=== PATIENT | female | born 1970 | race African-American/Black ===

== ENCOUNTER 2019-04-12 17:33 | Inpatient (IN) | payer OTHER ==
[2019-04-12 21:27] VITALS: BMI 22.6
--- NOTE | 2019-04-12 22:36 | HP ---
"CIWA Score Nausea/Vomitin-No Nausea/No Vomiting Muscle Tremors: 4-Moderate,w/Arms Extend Anxiety: 3 Agitation: 1-Slight > Activity Paroxysmal Sweats: 3 (Increased facial moisture) Orientation: 1-Uncertain about Date Tacttile Disturbances: 0-None Auditory Disturbances: 0-None Visual Disturbances: 0-None Headache: 2-Mild CIWA-Ar Total Score: 14 - Admission Criteria OASAS Guidelines: Admission for Medically Managed Detox: Requires at least one of the followin. CIWA greater than 12 2. Seizures within the past 24 hours 3. Delirium tremens within the past 24 hours 4. Hallucinations within the past 24 hours 5. Acute intervention needed for co occurring medical disorder 6. Acute intervention needed for co occurring psychiatric disorder 7. Severe withdrawal that cannot be handled at a lower level of care (continued vomiting, continued diarrhea, abnormal vital signs) requiring intravenous medication and/or fluids 8. Patient presents the following: CIWA greater than 12 Admission Criteria Met: Admission criteria met Admission ROS S - [facility] Chief Complaint: Withdrawing from alcohol Allergies/Adverse Reactions: Allergies Allergy/AdvReac Type Severity Reaction Status Date / Time No Known Allergies Allergy Verified 04/12/19 21:17 History of Present Illness: 48 yo present to [facility] w/ alcohol withdrawal symptoms. Referred for detox, after ED evaluation @ [facility], where was evaluated for Chest Pain. Chest XR and EKG w/ Rhythm strip done at [facility] and patient discharged w/o medication. Dnies chest pain at this time. Alcohol use began at age 19. Current use 8-12 12-24 oz beers. Relpased 3 months ago. (Used to drink a lot more) Cocaine use began at age 23. Smokes. (1-2x/week) Nicotine use began at age [age]. Smokes 1/2 PPD. UTox: + THC/LEDY HCG: Neg No seizures. Blackouts r/t alcohol use. Last about 3 days. PMHx: HTN, Sickle Cell Trait, anemia, hypoglycemia, blind (R) eye, Intermittent chest pain, MHHx: Schizophrenia, bi-polar, mod-disorder; Denies thoughts of harming self or others. Depakote,for anxiety, Seroquel, Zoloft 04/12/19 @ [facility]: Valproic Acid level = 7.8 Longest length of sobriety 2 years. Search Terms: Evette Galvan, 1970 Search Date: 04/12/2019 11:20:40 PM The Drug Utilization Report below displays all of the controlled substance prescriptions, if any, that your patient has filled in the last twelve months. The information displayed on this report is compiled from pharmacy submissions to the Department, and accurately reflects the information as submitted by the pharmacies. This report was requested by: Michelle Marrufo | Reference #: [id number] There are no results for the search terms that you entered. Exam Limitations: No Limitations - Ebola screening Have you traveled outside of the country in the last 21 days: No (N) Have you had contact with anyone from an Ebola affected area: No Have you been sick,other than usual withdrawal symptoms: No (Denies recent exposure to measles) Do you have a fever: No - Review of Systems Constitutional: Chills, Diaphoresis (Increased facial moisture), Changes in sleep (Difficulty falling asleep; Seroquel), Unintentional Wgt. Loss (r/t stress) EENT: reports: Blurred Vision, Other (Blind (R) eye r/t retinal detachment - 2004) Respiratory: reports: SOB with Exertion (Stairs, walking) Cardiac: reports: Other (Chest pain earlier - but not now) GI: reports: No Symptoms Reported : reports: No Symptoms Reported Musculoskeletal: reports: Back Pain (Intermittent mid thorasic achy back pain), Muscle Pain (Genralized aching) Integumentary: reports: No Symptoms Reported Neuro: reports: Headache (Frontal headache - mild), Numbness (intermittent toes) , Tremors Endocrine: reports: Increased Thirst Hematology: reports: Anemia (Iron deficiencey), Easy Bruising, Other (Sickle cell trait) Psychiatric: reports: Judgement Intact, Orientated x3 (Off by 1 day), Anxious, Depressed (Denies thoughts of harming self or others.) Other Systems: Reviewed and Negative Patient History - PPD History Previous Implant?: Yes Documented Results: Positive w/o proof Implanted On Prior [facility] Admission?: No PPD to be Administered?: No - Reproductive History Patient is a Female of Child Bearing Age (11 -55 yrs old): Yes Patient : No (Has an IUD and no periods) - Smoking Cessation Smoking history: Current every day smoker Have you smoked in the past 12 months: Yes Aproximately how many cigarettes per day: 10 Hx Chewing Tobacco Use: No Initiated information on smoking cessation: Yes 'Breaking Loose' booklet given: 04/12/19 - Substance & Tx. History Hx Alcohol Use: Yes Hx Substance Use: Yes Substance Use Type: Alcohol, Cocaine Hx Substance Use Treatment: Yes (detox, rehab) - Substances abused Alcohol Substance route: Oral Frequency: Daily Amount used: Beer - ( 12 ) 12 oz Age of first use: 19 Date of last use: 04/11/19 Cocaine Substance route: Smoking Frequency: 1-2 times per week Amount used: $20 Age of first use: 23 Date of last use: 04/11/19 Admission Physical Exam S - Vital Signs Vital Signs: Vital Signs - 24 hr 04/12/19 21:21 Temperature 98.2 F Pulse Rate 87 Respiratory 18 Rate Blood Pressure 168/108 H - Physical General Appearance: Yes: Mild Distress, Thin, Tremorous (Increased w/ arm elevation), Sweating (Increased facial moisture), Anxious HEENTM: Yes: EOMI, Hearing grossly Normal, Normocephalic, Normal Voice, Pharynx Normal, Other ((R) eye opaque and w/o vision) Respiratory: Yes: Lungs Clear, Normal Breath Sounds, No Respiratory Distress Neck: Yes: No masses,lesions,Nodules, Supple Breast: Yes: Breast Exam Deferred Cardiology: Yes: Regular Rhythm, Regular Rate (76), S1, S2 Abdominal: Yes: Non Tender, Soft, Increased Bowel Sounds, Protuberent Genitourinary: Yes: Within Normal Limits Back: Yes: Normal Inspection Musculoskeletal: Yes: full range of Motion, Gait Steady Extremities: Yes: Normal Capillary Refill, Normal Range of Motion, Tremors ( Increased w/ arm elevation) 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, Alert, Motor Strength 5/5, Normal Response Integumentary: Yes: Normal Color, Warm, Other (Decreased skin turgor) Lymphatic: Yes: Within Normal Limits - Diagnostic (1) Alcohol dependence with uncomplicated withdrawal Current Visit: Yes Status: Acute (2) Essential (primary) hypertension Current Visit: Yes Status: Chronic (3) Blind right eye Current Visit: Yes Status: Chronic (4) History of sickle cell trait Current Visit: No Status: Chronic (5) History of anemia Current Visit: Yes Status: Chronic Comment: On iron supplements (6) Nicotine dependence, uncomplicated Current Visit: Yes Status: Chronic Qualifiers: Nicotine product type: cigarettes Qualified Code(s): F17.210 - Nicotine dependence, cigarettes, uncomplicated (7) Cocaine abuse, uncomplicated Current Visit: Yes Status: Chronic (8) History of chest pain Current Visit: Yes Status: Chronic (9) History of positive PPD Current Visit: Yes Status: Chronic Cleared for Admission S - Detox or Rehab [facility] Level of Care: Medically Managed Detox Regimen/Protocol: Librium Claeared for Rehab Admission: No Breathalyzer - Breathalyzer Breathalyzer: 0 Urine Drug Screen - Test Device Lot number: [id number] Expiration date: 01/25/21 - Control Is test valid?: Yes - Results Drug screen NEGATIVE: No Urine drug screen results: THC-Marijuana, LEDY-Cocaine Inpatient Rehab Admission - Rehab Decision to Admit Inpatient rehab admission?: No"
[2019-04-12] MEDS ORDERED: MELATONIN 5 MG TABLETS PO PRN (23:35)
[2019-04-12] MEDS ORDERED: BISMUTH SUBSALICYLATE 524 MG/30 ML UD PO PRN (23:35)
[2019-04-12] MEDS ORDERED: MENTHOL/PHENOL 1 EACH UD MM PRN (23:35)
[2019-04-12] MEDS ORDERED: MAGNESIUM HYDROX 2400MG/30ML ORAL SUSPENSION 30 ML CUP PO PRN (23:35)
[2019-04-12] MEDS ORDERED: chlordiazePOXIDE HCL 10 MG CAPSULE PO PRN (23:35)
[2019-04-12] MEDS ORDERED: ACETAMINOPHEN 325 MG TABLET (FP) PO PRN ×2 (23:35)
[2019-04-12] MEDS ORDERED: MAG HYDROX/AL HYDROX/SIMETH 30 ML UNIT-DOSE CUP PO PRN (23:35)
[2019-04-12] MEDS ORDERED: METHOCARBAMOL 500 MG TABLET PO PRN (23:35)
[2019-04-12] MEDS ORDERED: hydrOXYzine PAMOATE 25 MG CAPSULE (FP) PO PRN (23:35)
[2019-04-12] MEDS ORDERED: IBUPROFEN 400 MG TABLET (FP) PO PRN (23:35)
[2019-04-12] MEDS ORDERED: MAGNESIUM CITRATE 300 ML BOTTLE PO PRN (23:35)
[2019-04-12] MEDS ORDERED: chlordiazePOXIDE HCL 25 MG CAPSULE PO ONE (23:35)
[2019-04-12] MEDS ORDERED: DIVALPROEX SODIUM 500 MG TABLET E.C. PO ONE (23:41)
[2019-04-13] MEDS ORDERED: chlordiazePOXIDE HCL 10 MG CAPSULE PO PRN (00:34)
[2019-04-13] MEDS ORDERED: chlordiazePOXIDE HCL 10 MG CAPSULE PO ONE (00:36)
[2019-04-13] MEDS ORDERED: cloNIDine HCL 0.1 MG TABLET PO ONE (00:45)
[2019-04-13] MEDS: chlordiazePOXIDE HCL 25 MG CAPSULE PO SCH ×5 (01:06→22:39)
[2019-04-13] MEDS ORDERED: chlordiazePOXIDE 5 MG CAPSULE PO SCH (05:00)
[2019-04-13 09:43] LABS: HEMATOCRIT 38.4 % (32.4-45.2); HEMOGLOBIN 12.7 GM/dL (10.7-15.3); MEAN CELL VOLUME 87.8 fl (80-96); MEAN PLT VOLUME 10.2 fl (7.5-11.1); PLATELET COUNT 203 K/MM3 (134-434); RBC 4.37 M/mm3 (3.60-5.2); RDW 14.7 % (11.6-15.6); WHITE BLOOD COUNT 3.5 K/mm3 (4.0-10.0)
[2019-04-13 09:49] LABS: ALBUMIN 3.2 g/dl (3.4-5.0); BILIRUBIN,TOTAL 0.1 mg/dL (0.2-1); BLOOD UREA NITROGEN 9.3 mg/dL (7-18); CALCIUM 8.7 mg/dL (8.5-10.1); CREATININE 0.9 mg/dL (0.55-1.3); TOT PROT 6.3 g/dl (6.4-8.2)
[2019-04-13] MEDS ORDERED: cloNIDine HCL 0.1 MG TABLET PO SCH (10:00)
--- NOTE | 2019-04-13 10:33 | EKG ---
Test Reason : Blood Pressure : / mmHG Vent. Rate : 076 BPM Atrial Rate : 076 BPM P-R Int : 120 ms QRS Dur : 080 ms QT Int : 406 ms P-R-T Axes : -07 012 020 degrees QTc Int : 456 ms NORMAL SINUS RHYTHM VOLTAGE CRITERIA FOR LEFT VENTRICULAR HYPERTROPHY NONSPECIFIC T WAVE ABNORMALITY ABNORMAL ECG NO PREVIOUS ECGS AVAILABLE Confirmed by CECY ZAPATA MD ([id number]) on 04/13/2019 10:33:28 AM Referred By: MONY DIEGO Confirmed By:CECY ZAPATA MD
[2019-04-13] MEDS: NICOTINE 14 MG/24 HOURS TOPICAL PATCH TD SCH (10:37)
[2019-04-13] MEDS: PRENATAL VITAMINS W/ FOLIC ACID TABLET (FP) PO SCH (10:37)
[2019-04-13] MEDS: HYDROCHLOROTHIAZIDE 12.5 MG CAPSULE (FP) PO SCH (10:37)
[2019-04-13] MEDS: NICOTINE POLACRILEX 2 MG GUM BUC PRN (10:41)
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
--- NOTE | 2019-04-13 16:14 | PN ---
S CIWA - CIWA Score Nausea/Vomitin-Mild Nausea/No Vomiting Muscle Tremors: 4-Moderate,w/Arms Extend Anxiety: 2 Agitation: 3 Paroxysmal Sweats: 1-Minimal Palms Moist Orientation: 0-Oriented Tacttile Disturbances: 1-Very Mild Itch/Numbness Auditory Disturbances: 0-None Visual Disturbances: 0-None Headache: 0-None Present CIWA-Ar Total Score: 12 BHS Progress Note (SOAP) Subjective: reported right 5th finger numbness denies trauma denies injury right hand 5th finger skin intact no swelling joints brink capillary refilled full rang of motion on proximal joint can not make a complete fist denies pain warm soak to improve circulation discuss alcohol related neuropathy Objective: 04/13/19 16:13 Vital Signs Temperature 97.8 F 04/13/19 13:16 Pulse Rate 73 04/13/19 13:16 Respiratory Rate 18 04/13/19 13:16 Blood Pressure 124/84 04/13/19 13:16 O2 Sat by Pulse Oximetry (%) Laboratory Last Values WBC 3.5 K/mm3 (4.0-10.0) L 04/13/19 07:00 RBC 4.37 M/mm3 (3.60-5.2) 04/13/19 07:00 Hgb 12.7 GM/dL (10.7-15.3) 04/13/19 07:00 Hct 38.4 % (32.4-45.2) 04/13/19 07:00 MCV 87.8 fl (80-96) 04/13/19 07:00 MCH 29.0 pg (25.7-33.7) 04/13/19 07:00 MCHC 33.0 g/dl (32.0-36.0) 04/13/19 07:00 RDW 14.7 % (11.6-15.6) 04/13/19 07:00 Plt Count 203 K/MM3 (134-434) 04/13/19 07:00 MPV 10.2 fl (7.5-11.1) 04/13/19 07:00 Sodium 141 mmol/L (136-145) 04/13/19 07:00 Potassium 4.0 mmol/L (3.5-5.1) 04/13/19 07:00 Chloride 111 mmol/L (98-107) H 04/13/19 07:00 Carbon Dioxide 24 mmol/L (21-32) 04/13/19 07:00 Anion Gap 6 MMOL/L (8-16) L 04/13/19 07:00 BUN 9.3 mg/dL (7-18) 04/13/19 07:00 Creatinine 0.9 mg/dL (0.55-1.3) 04/13/19 07:00 Est GFR (CKD-EPI)AfAm 86.41 04/13/19 07:00 Est GFR (CKD-EPI)NonAf 74.55 04/13/19 07:00 Random Glucose 84 mg/dL (74-106) 04/13/19 07:00 Calcium 8.7 mg/dL (8.5-10.1) 04/13/19 07:00 Total Bilirubin 0.1 mg/dL (0.2-1) L 04/13/19 07:00 AST 34 U/L (15-37) 04/13/19 07:00 ALT 42 U/L (13-61) 04/13/19 07:00 Alkaline Phosphatase 127 U/L (45-117) H 04/13/19 07:00 Total Protein 6.3 g/dl (6.4-8.2) L 04/13/19 07:00 Albumin 3.2 g/dl (3.4-5.0) L 04/13/19 07:00 POC Urine HCG, Qual Negative 04/12/19 22:05 RPR Titer Nonreactive (NONREACTIVE) 04/13/19 07:00 lab noted Assessment: 04/13/19 16:13 alcohol withdrawal sx Plan: continue alcohol detox
[2019-04-13] MEDS: FERROUS GLUCONATE 324 MG TAB (FP) PO SCH (17:57)
[2019-04-13] MEDS ORDERED: QUEtiapine FUMARATE 100 MG TABLET (FP) PO SCH (22:00)
[2019-04-13] MEDS: TOPIRAMATE 25 MG TABLET (FP) PO SCH (22:39)
[2019-04-13] MEDS: QUEtiapine FUMARATE 50 MG TABLET PO SCH (22:39)
[2019-04-13] MEDS: THIAMINE HCL 100 MG TABLET (FP) PO SCH (22:39)
[2019-04-13] MEDS: DIVALPROEX NA *ER* EXTEND REL 250 MG TABLET.SA PO SCH (22:40)
[2019-04-14] MEDS ORDERED: chlordiazePOXIDE HCL 10 MG CAPSULE PO PRN
[2019-04-14] MEDS ORDERED: chlordiazePOXIDE HCL 10 MG CAPSULE PO SCH (05:00)
[2019-04-14] MEDS: chlordiazePOXIDE 5 MG CAPSULE PO SCH ×3 (06:45→21:30)
--- NOTE | 2019-04-14 10:37 | PN ---
S CIWA - CIWA Score Nausea/Vomitin-No Nausea/No Vomiting Muscle Tremors: 3 Anxiety: 2 Agitation: 3 Paroxysmal Sweats: 1-Minimal Palms Moist Orientation: 0-Oriented Tacttile Disturbances: 1-Very Mild Itch/Numbness Auditory Disturbances: 0-None Visual Disturbances: 0-None Headache: 0-None Present CIWA-Ar Total Score: 10 S Progress Note (SOAP) Subjective: denies right 5th finger numbness today ambulating on hallway social with peers discuss aftercare with staff prefers health system Objective: 04/14/19 10:39 Vital Signs Temperature 98.5 F 04/14/19 09:21 Pulse Rate 85 04/14/19 09:21 Respiratory Rate 20 04/14/19 09:21 Blood Pressure 138/93 04/14/19 09:21 O2 Sat by Pulse Oximetry (%) Laboratory Last Values WBC 3.5 K/mm3 (4.0-10.0) L 04/13/19 07:00 RBC 4.37 M/mm3 (3.60-5.2) 04/13/19 07:00 Hgb 12.7 GM/dL (10.7-15.3) 04/13/19 07:00 Hct 38.4 % (32.4-45.2) 04/13/19 07:00 MCV 87.8 fl (80-96) 04/13/19 07:00 MCH 29.0 pg (25.7-33.7) 04/13/19 07:00 MCHC 33.0 g/dl (32.0-36.0) 04/13/19 07:00 RDW 14.7 % (11.6-15.6) 04/13/19 07:00 Plt Count 203 K/MM3 (134-434) 04/13/19 07:00 MPV 10.2 fl (7.5-11.1) 04/13/19 07:00 Sodium 141 mmol/L (136-145) 04/13/19 07:00 Potassium 4.0 mmol/L (3.5-5.1) 04/13/19 07:00 Chloride 111 mmol/L (98-107) H 04/13/19 07:00 Carbon Dioxide 24 mmol/L (21-32) 04/13/19 07:00 Anion Gap 6 MMOL/L (8-16) L 04/13/19 07:00 BUN 9.3 mg/dL (7-18) 04/13/19 07:00 Creatinine 0.9 mg/dL (0.55-1.3) 04/13/19 07:00 Est GFR (CKD-EPI)AfAm 86.41 04/13/19 07:00 Est GFR (CKD-EPI)NonAf 74.55 04/13/19 07:00 Random Glucose 84 mg/dL (74-106) 04/13/19 07:00 Calcium 8.7 mg/dL (8.5-10.1) 04/13/19 07:00 Total Bilirubin 0.1 mg/dL (0.2-1) L 04/13/19 07:00 AST 34 U/L (15-37) 04/13/19 07:00 ALT 42 U/L (13-61) 04/13/19 07:00 Alkaline Phosphatase 127 U/L (45-117) H 04/13/19 07:00 Total Protein 6.3 g/dl (6.4-8.2) L 04/13/19 07:00 Albumin 3.2 g/dl (3.4-5.0) L 04/13/19 07:00 POC Urine HCG, Qual Negative 04/12/19 22:05 RPR Titer Nonreactive (NONREACTIVE) 04/13/19 07:00 lab noted Assessment: 04/14/19 10:39 alcohol and opiate withdrawal sx Plan: continue alcohol and opiate detox
[2019-04-14] MEDS: PRENATAL VITAMINS W/ FOLIC ACID TABLET (FP) PO SCH (10:41)
[2019-04-14] MEDS: NICOTINE 14 MG/24 HOURS TOPICAL PATCH TD SCH (10:41)
[2019-04-14] MEDS: TOPIRAMATE 25 MG TABLET (FP) PO SCH ×2 (10:41→21:30)
[2019-04-14] MEDS: HYDROCHLOROTHIAZIDE 12.5 MG CAPSULE (FP) PO SCH (10:41)
[2019-04-14] MEDS: DIVALPROEX NA *ER* EXTEND REL 250 MG TABLET.SA PO SCH ×2 (10:42→21:31)
[2019-04-14] MEDS: NICOTINE POLACRILEX 2 MG GUM BUC PRN (10:44)
[2019-04-14] MEDS: FERROUS GLUCONATE 324 MG TAB (FP) PO SCH (17:22)
[2019-04-14] MEDS: THIAMINE HCL 100 MG TABLET (FP) PO SCH (21:30)
[2019-04-14] MEDS: QUEtiapine FUMARATE 50 MG TABLET PO SCH (21:30)
[2019-04-15] MEDS ORDERED: chlordiazePOXIDE HCL 10 MG CAPSULE PO PRN
[2019-04-15] MEDS ORDERED: chlordiazePOXIDE HCL 10 MG CAPSULE PO SCH (05:00)
[2019-04-15] MEDS ORDERED: chlordiazePOXIDE HCL 10 MG CAPSULE PO ONE (05:00)
[2019-04-15] MEDS: PRENATAL VITAMINS W/ FOLIC ACID TABLET (FP) PO SCH (09:01)
[2019-04-15] MEDS: DIVALPROEX NA *ER* EXTEND REL 250 MG TABLET.SA PO SCH (09:01)
[2019-04-15] MEDS: TOPIRAMATE 25 MG TABLET (FP) PO SCH (09:01)
[2019-04-15] MEDS: HYDROCHLOROTHIAZIDE 12.5 MG CAPSULE (FP) PO SCH (09:01)
[2019-04-15] MEDS: NICOTINE POLACRILEX 2 MG GUM BUC PRN (09:03)
[2019-04-15] MEDS: NICOTINE 14 MG/24 HOURS TOPICAL PATCH TD SCH (09:03)
[2019-04-15 09:13] VITALS: BP 144/105; PULSE 88; TEMP 97
--- NOTE | 2019-04-15 16:30 | PN ---
S CIWA - CIWA Score Nausea/Vomitin-No Nausea/No Vomiting Muscle Tremors: None Anxiety: 2 Agitation: 1-Slight > Activity Paroxysmal Sweats: 2 Orientation: 0-Oriented Tacttile Disturbances: 0-None Auditory Disturbances: 0-None Visual Disturbances: 1-Very Mild Sensitivity Headache: 0-None Present CIWA-Ar Total Score: 6 BHS Progress Note (SOAP) Subjective: Anxious (Mild), Sweating. Objective: PATIENT A & O X 3, OBSERVED AMBULATING ON UNIT UNASSISTED. IN NO ACUTE DISTRESS. 04/15/19 16:28 Vital Signs Temperature 97 F L 04/15/19 09:12 Pulse Rate 88 04/15/19 09:12 Respiratory Rate 20 04/15/19 09:12 Blood Pressure 144/105 H 04/15/19 09:12 O2 Sat by Pulse Oximetry (%) Laboratory Tests 04/12/19 04/13/19 04/13/19 22:05 07:00 07:00 WBC 3.5 L RBC 4.37 Hgb 12.7 Hct 38.4 MCV 87.8 MCH 29.0 MCHC 33.0 RDW 14.7 Plt Count 203 MPV 10.2 Sodium 141 Potassium 4.0 Chloride 111 H Carbon Dioxide 24 Anion Gap 6 L BUN 9.3 Creatinine 0.9 Est GFR (CKD-EPI)AfAm 86.41 Est GFR (CKD-EPI)NonAf 74.55 Random Glucose 84 Calcium 8.7 Total Bilirubin 0.1 L AST 34 ALT 42 Alkaline Phosphatase 127 H Total Protein 6.3 L Albumin 3.2 L POC Urine HCG, Qual Negative RPR Titer 04/13/19 07:00 WBC RBC Hgb Hct MCV MCH MCHC RDW Plt Count MPV Sodium Potassium Chloride Carbon Dioxide Anion Gap BUN Creatinine Est GFR (CKD-EPI)AfAm Est GFR (CKD-EPI)NonAf Random Glucose Calcium Total Bilirubin AST ALT Alkaline Phosphatase Total Protein Albumin POC Urine HCG, Qual RPR Titer Nonreactive LABS NOTED. Assessment: 04/15/19 16:28 COMPLETION OF DETOX REGIMEN. Plan: SINCE PATIENT REPORTS THAT CURRENT WITHDRAWAL / DETOX SYMPTOMS ARE MINIMAL IN DEGREE AND THAT HE FEELS WELL OVERALL, AT PATIENTS REQUEST, HE WAS GRANTED AN EARLY DISCHARGE FROM DETOX UNIT TODAY SO THAT SHE MAY RETURN HOME FOR THE NEXT FEW DAYS TO ATTEND TOP PERSONAL MATTERS. PATIENT WILL THEN APPLY FOR ADMISSION TO [facility] ([place], [place]).
--- NOTE | 2019-04-15 16:33 | DS ---
[facility] Detox Discharge Summary Admission Date: 04/12/19 Discharge Date: 04/15/19 - History Present History: Alcohol Dependence, Cocaine Dependence Additional Comments: PATIENT REPORTS THAT CURRENT WITHDRAWAL / DETOX SYMPTOMS ARE MINIMAL IN DEGREE AND THAT SHE FEELS WELL OVERALL AT TIME OF DISCHARGE FROM DETOX UNIT. PATIENT WILL RETURN HOME FOR THE NEXT FEW DAYS TO ATTEND TOP PERSONAL MATTERS. PATIENT WILL THEN APPLY FOR ADMISSION TO [facility] ([place], [place]) FOR AFTERCARE. PATIENT WAS DISCHARGED FROM DETOX UNIT IN STABLE MEDICAL CONDITION. PATIENT DECLINED OFFER OF MEDICATION PRESCRIPTION FOR HOME MEDICATION (HCTZ) AT TIME OF DISCHARGE FROM DETOX, NOTING THAT HE CURRENTLY HAS ADEQUATE SUPPLIES OF ALL PRESCRIBED HOME MEDICATIONS AT HOME. Pertinent Past History: Nicotine Dependence, Schizoaffective Disorder, History of Sickle Cell Trait, History Of Anemia, History Of Hypoglycemia, Blind In Right Eye, HTN, History Of Positive PPD. - Physical Exam Results Vital Signs: Vital Signs Temperature 97 F L 04/15/19 09:12 Pulse Rate 88 04/15/19 09:12 Respiratory Rate 20 04/15/19 09:12 Blood Pressure 144/105 H 04/15/19 09:12 O2 Sat by Pulse Oximetry (%) Pertinent Admission Physical Exam Findings: WITHDRAWAL SYMPTOMS. Laboratory Tests 04/12/19 04/13/19 04/13/19 22:05 07:00 07:00 WBC 3.5 L RBC 4.37 Hgb 12.7 Hct 38.4 MCV 87.8 MCH 29.0 MCHC 33.0 RDW 14.7 Plt Count 203 MPV 10.2 Sodium 141 Potassium 4.0 Chloride 111 H Carbon Dioxide 24 Anion Gap 6 L BUN 9.3 Creatinine 0.9 Est GFR (CKD-EPI)AfAm 86.41 Est GFR (CKD-EPI)NonAf 74.55 Random Glucose 84 Calcium 8.7 Total Bilirubin 0.1 L AST 34 ALT 42 Alkaline Phosphatase 127 H Total Protein 6.3 L Albumin 3.2 L POC Urine HCG, Qual Negative RPR Titer 04/13/19 07:00 WBC RBC Hgb Hct MCV MCH MCHC RDW Plt Count MPV Sodium Potassium Chloride Carbon Dioxide Anion Gap BUN Creatinine Est GFR (CKD-EPI)AfAm Est GFR (CKD-EPI)NonAf Random Glucose Calcium Total Bilirubin AST ALT Alkaline Phosphatase Total Protein Albumin POC Urine HCG, Qual RPR Titer Nonreactive LABS NOTED. - Treatment Hospital Course: Detox Protocol Followed, Detoxed Safely, Responded well, Discharged Condition Good, Rehab Referral Accepted Patient has Accepted a Rehab Referral to: [facility] ([place], [place]). - Medication Discharge Medications: Ambulatory Orders Divalproex [Depakote -] 500 mg PO BID 04/12/19 Hydrochlorothiazide [Hctz -] 12.5 mg PO DAILY 04/12/19 Quetiapine Fumarate [Seroquel -] 25 mg PO DAILY 04/12/19 Sertraline HCl [Zoloft -] 10 mg PO DAILY 04/12/19 Divalproex *ER* [Depakote *ER* -] 250 mg PO BID 04/13/19 Quetiapine Fumarate [Seroquel] 100 mg PO HS 04/13/19 Topiramate 50 mg PO BID 04/13/19 Divalproex *ER* [Depakote *ER* -] 250 mg PO BID #28 tablet.sa 04/15/19 Quetiapine Fumarate [Seroquel -] 50 mg PO HS #14 tablet 04/15/19 Topiramate [Topamax] 50 mg PO BID #28 tablet 04/15/19 - Diagnosis (1) Alcohol dependence with uncomplicated withdrawal Status: Acute (2) Blind right eye Status: Chronic (3) Cocaine abuse, uncomplicated Status: Chronic (4) Essential (primary) hypertension Status: Chronic (5) History of anemia Status: Chronic (6) History of chest pain Status: Chronic (7) History of positive PPD Status: Chronic (8) History of sickle cell trait Status: Chronic (9) Nicotine dependence, uncomplicated Status: Chronic Qualifiers: Nicotine product type: cigarettes Qualified Code(s): F17.210 - Nicotine dependence, cigarettes, uncomplicated (10) Schizoaffective disorder Status: Chronic Qualifiers: Schizoaffective disorder type: unspecified Qualified Code(s): F25.9 - Schizoaffective disorder, unspecified - AMA Did Patient Leave Against Medical Advice: No
[2019-04-16] MEDS ORDERED: chlordiazePOXIDE HCL 10 MG CAPSULE PO ONE (05:00)
== END 2019-04-15 09:38 | disposition home or self-care (01) | DRG 773 ==
LOC: YASAS 17:33 → Y3N 23:29
PROVIDERS: ADMIT Surgery; ATTEND Surgery
PROC: HZ2ZZZZ Detoxification Services for Substance Abuse Treatment (ICD-10-PCS; principal; 2019-04-12)
DX: F11.23 Opioid dependence with withdrawal (principal); F10.230 Alcohol dependence with withdrawal, uncomplicated; F14.10 Cocaine abuse, uncomplicated; F17.210 Nicotine dependence, cigarettes, uncomplicated; F39 Unspecified mood [affective] disorder; F20.9 Schizophrenia, unspecified; F31.9 Bipolar disorder, unspecified; D64.9 Anemia, unspecified; D57.3 Sickle-cell trait; H54.61 Unqualified visual loss, right eye, normal vision left eye; R07.9 Chest pain, unspecified; R76.11 Nonspecific reaction to tuberculin skin test without active tuberculosis
CPT/HCPCS: 36415; 71046-TC-FY; 80053; 81025; 85027; 86593; 93005; 93010; J0735